=== PATIENT | female | born 1990 | race Two or more races ===

== ENCOUNTER 2021-08-30 10:49 | Outpatient (CLI) | payer OTHER | END 2021-08-30 11:54 | disposition home or self-care (01) | LOC: PRENATAL 10:49 | PROVIDERS: ATTEND Obstetrics & Gynecology Maternal & Fetal Medicine | DX: Z34.00 Encounter for supervision of normal first pregnancy, unspecified trimester (principal) ==

== ENCOUNTER 2021-10-16 08:05 | Outpatient (CLI) | payer OTHER | END 2021-10-16 09:14 | disposition home or self-care (01) | LOC: PRENATAL 08:05 | PROVIDERS: ATTEND Obstetrics & Gynecology Maternal & Fetal Medicine | DX: O35.0XX0 Maternal care for (suspected) central nervous system malformation in fetus, not applicable or unspecified (principal); O35.3XX0 Maternal care for (suspected) damage to fetus from viral disease in mother, not applicable or unspecified; O09.529 Supervision of elderly multigravida, unspecified trimester; O34.219 Maternal care for unspecified type scar from previous cesarean delivery; Z3A.20 20 weeks gestation of pregnancy ==

== ENCOUNTER 2022-02-20 08:15 | Inpatient (IN) | payer OTHER ==
[~2022-02-20] VITALS: Ht 154.9 cm; Wt 2.7 kg
[2022-02-22] MEDS ORDERED: VITATRUE COMBO1 EACH PO (06:22)
== END 2022-02-24 10:05 | disposition home or self-care (01) | DRG 788 ==
LOC: EDSTATUS 08:15 → OB/GYN 02-22 05:52 → O/R 02-22 05:52 → LDR 02-22 08:15 → OB/GYN 02-22 15:27
PROVIDERS: ADMIT Specialist; ATTEND Specialist
PROC: 4A1HXCZ Monitoring of Products of Conception, Cardiac Rate, External Approach (ICD-10-PCS; 2022-02-22)
PROC: 10D00Z1 Extraction of Products of Conception, Low, Open Approach (ICD-10-PCS; principal; 2022-02-22 08:30)
DX: O32.1XX0 Maternal care for breech presentation, not applicable or unspecified (principal); O99.820 Streptococcus B carrier state complicating pregnancy; Z3A.39 39 weeks gestation of pregnancy; Z37.0 Single live birth; Z20.822 Contact with and (suspected) exposure to COVID-19